=== PATIENT | male | born 1985 | race African-American/Black ===

== ENCOUNTER 2017-06-10 18:45 | Emergency (ER) | payer OTHER ==
[~2017-06-10] VITALS: Ht 190.5 cm; Wt 102.1 kg
[2017-06-10 20:42] VITALS: BP 114/71
[2017-06-10] MEDS ORDERED: NAPROSYN500 MG PO (20:55)
[2017-06-10] MEDS ORDERED: NORFLEX100 MG PO (20:55)
== END 2017-06-10 21:08 | disposition home or self-care (01) ==
LOC: ER 18:45
DX: S29.012A Strain of muscle and tendon of back wall of thorax, initial encounter (principal); S39.012A Strain of muscle, fascia and tendon of lower back, initial encounter; F10.99 Alcohol use, unspecified with unspecified alcohol-induced disorder; V89.2XXA Person injured in unspecified motor-vehicle accident, traffic, initial encounter; Y93.89 Activity, other specified; Y92.89 Other specified places as the place of occurrence of the external cause; Y99.8 Other external cause status